=== PATIENT | male | born 1970 ===

== ENCOUNTER 2024-11-11 02:29 | Emergency (ER) | payer SELFPAY ==
[2024-11-11] VITALS (10 sets, daily range): BP systolic 130–160; BP diastolic 79–121; PULSE 79–101; RESP 14–22; TEMP 36.4–37.3; O2SAT 88–100
--- NOTE | 2024-11-11 02:30 | RT.EKG_ITS ---
APPROVED REPORT Exam: Resting ECG Reason for Exam: medical clearance Patient Location: E HR:83 bpm ECG Measurements Heart Rate 83 AXIS AK 155 P 76 QRSd 96 QRS 55 QT 401 T 55 QTc 470 Conclusion Sinus rhythm...normal P axis, V-rate 60- [address] segment or T wave abnormalities to suggest occlusive OH
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
[2024-11-11] MEDS: LORazepam 1 MG TAB PO ×3 (03:20→20:21)
[2024-11-11 03:28] LABS: Abs Immature Grans 0.02 10^3/uL (0.0-0.06); HCT 45.4 % (40.0-50.0); HGB 15.4 g/dL (13.5-17.5); Immature Grans % 0.2 %; MCH 29.8 pg (27.0-33.0); MCHC 33.9 % (32.0-36.0); MCV 88 fL (80-95); MPV 9.7 fL (8.0-11.0); Platelet Count 240 10^3/uL (130-400); RBC 5.16 10^6/uL (4.36-5.78); RDW 13.5 % (11.8-14.1); RDW-SD 43.8 fL; WBC 8.12 10^3/uL (4.4-10.8)
[2024-11-11 03:41] LABS: ALT 35 U/L (16-63); AST 32 U/L (15-37); Albumin 4.7 g/dL (3.4-5.0); Alkaline Phosphatase 43 U/L (46-116); Anion Gap 11.0 mmol/L (3-11); BUN 7 mg/dL (7-18); Bilirubin, Total 1.8 mg/dL (0.2-1.0); CO2 28.0 mmol/L (21.0-32.0); Calcium 9.8 mg/dL (8.5-10.1); Chloride 94 mmol/L (98-107); Estimated GFR 105.17 (mL/min/1.73m2); Glucose 96 mg/dL (74-106); Potassium 3.6 mmol/L (3.5-5.1); Sodium 133 mmol/L (136-145); Total Protein 9.7 g/dL (6.4-8.2)
[2024-11-11] MEDS: Midazolam 10 MG/2 ML VIAL NS (04:35)
[2024-11-11] MEDS: OLANZapine 10 MG VIAL (04:35)
--- NOTE | 2024-11-11 05:01 | NUR.NOTE ---
Patient moved to area for firther observation at which time he begain to display HYPER-SEXUAL and unwanted behavior Pt was shown to his room at which time he became mor aggressive pounding om the Glass in he Nursing station shouting profanity and refusing to follow instruction provider informed for further orders and to Re-evaluate patient, addional orders recieved Medication route changed to IM from PO, Safety of staff maintained and pt was medicated With IM versed and Zyprexa per Orders see Mar for admin times
--- NOTE | 2024-11-11 05:07 | NUR.NOTE ---
Pt transported to [facility] in the ED and arrangements made for 1:1 observation due to patients Behavior, V/S stable w B/P of 139/49 HR 76 Resp 16 Sao2 of 96% on R/APt placed on Heart monitor which shows NSR on the monitor w no ectopy, Pt hypersomulent at this time patient placed on Hospital strecher and transported to [facility] siderails up X 2 bed locked in lowest position and sitter at bedside for 1:1 observation
--- NOTE | 2024-11-11 09:01 | CMSP_ITS ---
Date of service: 11/11/24 Time of Service: 09:02 Care Management Safety Plan Status Status: Involuntary Reason for Wait Reason for Wait: Inpatient Admission Safety Plan Safety Plan: INVOLUNTARY FOR INPATIENT PSYCHIATRIC STABILIZATION.? Patient is appropriate in all interactions since arriving at [facility]; Pt has demonstrated appropriate coping and communication skills, has articulated his or her needs and concerns and is fully engaged during staff interactions. Safety plan has been established with patient, and care team, to adhere to patient goals, identify restrictions based on behavioral status, address nutrition, and determine allowed personal belongings, tools for hygiene and personal care. Determine level of activity including ambulation, level of supervision, visitors, and determine privileges based on behaviors and level of engagement by pt. SAFETY PLAN: 1. Will remain on suicide precautions, in paper clothes 2. Will remain in Zone B under direct supervision of one-on-one staff at all times provided by [employer]; MADY, THERAPIST transportation services representative. 3. May have paper cups, plates, finger foods as well as a cardboard spoon with which to eat meals. 4. Follow [facility] Management of the Admitted Behavioral Health Patient policy. 5. Shower available in Zone B without restriction. 6. Personal belongings-soft items permitted at RN discretion. 7. Visitors-none at this time. 8. Activities: soft cart items approved per RN discretion. 9.? Bathroom available in Zone B without restriction. 10. Phone: limited to legal administrative assistant on [facility] cordless phone at RN discretion. Due to INVOLUNTARY status, patient is being held at [facility] by the Department of Mental Health ([facility]) until 2nd certification by [facility] Psychiatrist can be performed (within 24 hours). Staff will provide de-escalation support (CPI) as needed. If patient wishes to leave [facility], staff will contact [facility] Crisis Screener ([phone]) and Telephone Coin Box Collector ([phone]) as soon as possible. In the event of elopement, notify [place] [employer] Police ([phone]). Patient is currently involuntarily at [facility]. [facility] Frontline Harbor Department Manager will continue seeking placement. Please contact the Telephone Coin Box Collector for any needed changes to Safety Plan. Safety plan has been provided to interdepartmental care team. Patient will be transported by [employer] at time of discharge.
--- NOTE | 2024-11-11 09:01 | PDOC.CMSAFE ---
Date of service: 11/11/24 Time of Service: 09:02 Care Management Safety Plan Status Status: Involuntary Reason for Wait Reason for Wait: Inpatient Admission Safety Plan Safety Plan: INVOLUNTARY FOR INPATIENT PSYCHIATRIC STABILIZATION.? Patient is appropriate in all interactions since arriving at [facility]; Pt has demonstrated appropriate coping and communication skills, has articulated his or her needs and concerns and is fully engaged during staff interactions. Safety plan has been established with patient, and care team, to adhere to patient goals, identify restrictions based on behavioral status, address nutrition, and determine allowed personal belongings, tools for hygiene and personal care. Determine level of activity including ambulation, level of supervision, visitors, and determine privileges based on behaviors and level of engagement by pt. SAFETY PLAN: 1. Will remain on suicide precautions, in paper clothes 2. Will remain in Zone B under direct supervision of one-on-one staff at all times provided by [employer]; MADY, GREASE PACKER metal bonding press operator. 3. May have paper cups, plates, finger foods as well as a cardboard spoon with which to eat meals. 4. Follow [facility] Management of the Admitted Behavioral Health Patient policy. 5. Shower available in Zone B without restriction. 6. Personal belongings-soft items permitted at RN discretion. 7. Visitors-none at this time. 8. Activities: soft cart items approved per RN discretion. 9.? Bathroom available in Zone B without restriction. 10. Phone: limited to workers compensation paralegal on [facility] cordless phone at RN discretion. Due to INVOLUNTARY status, patient is being held at [facility] by the Department of Mental Health ([facility]) until 2nd certification by [facility] Psychiatrist can be performed (within 24 hours). Staff will provide de-escalation support (CPI) as needed. If patient wishes to leave [facility], staff will contact [facility] Crisis Screener ([phone]) and Business Loan Processor ([phone]) as soon as possible. In the event of elopement, notify [place] [employer] Police ([phone]). Patient is currently involuntarily at [facility]. [facility] Frontline Senior Mobile Solutions Architect will continue seeking placement. Please contact the Business Loan Processor for any needed changes to Safety Plan. Safety plan has been provided to interdepartmental care team. Patient will be transported by [employer] at time of discharge.
--- NOTE | 2024-11-11 09:01 | PDOC.CMPRO ---
Date of service: 11/11/24 Time of Service: 16:09 Care Management Progress Note Progress Note Text Progress Note Text: CM huddled with Zone B RN, and [facility] surrounding Giorgio's plan of care. He is currently being held involuntary and was brought in by [facility]. 1st certification complete, awaiting second certification. Giorgio's ex-girlfriend has continuously contacted CM requesting to be added to HIPAA; referred to risk management. Per RN, he had been flexing in front female staff members. Per [facility], Giorgio is showing poor insight and judgement. CM will continue to follow. Social Determinants of Health Screening Will the Patient Participate in the Screening?: Declined to provide
[2024-11-11] MEDS: OLANZapine 10 MG TAB (10:25)
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
[2024-11-11 19:19] LABS: Cannabinoids THC Negative (Negative); METHADONE URINE SCREEN Negative (Negative)
--- NOTE | 2024-11-11 23:38 | MHPN_ITS ---
Date of service: 11/11/24 Time of Service: 17:30 Mental Health Emergency Note Release [facility] release signed:: No Reason for Visit The client is currently at the [facility] Zone [facility] on a MH warrant. The client is knew to [facility] and is known to this clinician in a limited capacity. This clinician meets with the client for the second daily assessment face to face. It is unknown to this clinician if the client has ever been hospitalized in the past for their mental health. In the last 2 weeks has the pt presented for ES prior to today?: Yes, presented at [facility] Client Information Client is: New Well Housed: No,status: Homeless Unstable housing Non Suicidal Self Injury Current: No History: No Safety Risk/Harm to Self or Others Current Ideation to Harm Self or Others: No Risk: Does risk to harm exist?: yes. Access to means: No. Risk: High Risk Duty to warn indicated: No Asssessment/Mental Status Appearance: Disheveled Attitude: Demanding and Other (uncooperative ) Behavior: Agitated Speech: Normal and Pressured Affect: Cogruent with mood Mood: Elevated, Anxious and Irritable Thought process: Racing and Poverty of content Hallucinations: No Delusions: yes, Grandiose and Bizarre Attention: Wandering and Poor concentration Perception: Not impaired Orientation: Fully orientated Memory: Intact Insight: Poor Judgement: Poor Neurovegetative Symptoms Sleep: No change Appetitie: No change Interests: No change Energy: No change Libido: Not applicable Additional Issues: Assaultive/Threatening Behavior: No Medical Concerns: No Client engaged in active self harm w/weapon: No Threatening to run away: No Child reported abuse/neglect: No Voluntarily presenting for services: No Domestic violence is a concern: No Extreme Psychosis or extreme behavior is present: Yes Impression The client is a 54-year-old biological male who is transient in [place], [place]. The client presents in a disheveled appearance and is seen in blue paper scrubs in the Zone B of [facility]. Affect appears to be congruent with mood. Speech is pressure, but in normal range. Client is elevated, anxious and irritable with this clinician. Thought process appears to be racing and a poverty of content. The client denied visual and auditory hallucinations. The client presents with grandiose and bizarre delusions observed by this clinician. Cognitive assessment reveals orientation to person, place and time. The client reports having a peaceful day where he took a nap and did push ups earlier. The client spoke of going to his daughters soccer game earlier and asked when he could leave. This clinician explained to the client that he was not allowed to leave the [facility] at this moment in time. The client denied SI, HI and NSSI with no intent or plan. The client had difficulties maintaining focus on the reassessment and engaged minimally. Plan/Disposition Recommended Disposition: Hospitalization facilities contacted. Plan: Per report of [facility] the 2nd cert passed for the client. The client will remain at the [facility] until placement is secured. The client will receive twice a day daily assessments by emergency services until placement is found. Reports/communication Outcome discussed with: ED/Personnel
--- NOTE | 2024-11-12 07:08 | ED.PSYCHBOAR ---
Date of service: 11/12/24 Time of Service: 07:08 Psychiatric Border Handoff Update Brief Story: 54-year-old male who is new to the area with reported history of bipolar disorder, presents for evaluation of manic behavior including hypersexuality and agitation. Patient medically cleared, evaluated by psychiatry and EE upheld. Patient currently voluntarily taking Zyprexa and Ativan in the manage behavior. No acute events overnight Behavioral Concerns: Agitation, hypersexuality Potential Disposition: Inpatient involuntary admission Barriers to Disposition: Bed search Medical Concerns: None Mediation Reconciliation performed: Yes Code Status ordered: Yes Diet ordered: Yes Future to do Items: Follow-up on bed search Discharge Plan Discharge Details Chief Complaint: PsychEval Clinical Impression: Marge Primary Care Provider: Unknown,Unknown ED Provider: Matthew Roca Home Meds and New Rx's Prescriptions: No Action sildenafil [Viagra] 25 mg tablet 25 mg PO ONCE PRN Rx Instructions: administer 30 minutes to 4 hours before activity
[2024-11-12 08:06] VITALS: BP 123/86; PULSE 85; RESP 18; TEMP 35.9; O2SAT 99
--- NOTE | 2024-11-12 08:52 | CMSP_ITS ---
Date of service: 11/12/24 Time of Service: 08:53 Care Management Safety Plan Status Status: Involuntary Reason for Wait Reason for Wait: Inpatient Admission Safety Plan Safety Plan: INVOLUNTARY FOR INPATIENT PSYCHIATRIC STABILIZATION.? Patient is appropriate in all interactions since arriving at [facility]; Pt has demonstrated appropriate coping and communication skills, has articulated his or her needs and concerns and is fully engaged during staff interactions. Safety plan has been established with patient, and care team, to adhere to patient goals, identify restrictions based on behavioral status, address nutrition, and determine allowed personal belongings, tools for hygiene and personal care. Determine level of activity including ambulation, level of supervision, visitors, and determine privileges based on behaviors and level of engagement by pt. SAFETY PLAN: 1. Will remain on suicide precautions, in paper clothes 2. Will remain in Zone B under direct supervision of one-on-one staff at all times provided by [employer]; MADY, LIME KILN AND RECAUSTICIZING OPERATOR culinary instructor. 3. May have paper cups, plates, finger foods as well as a cardboard spoon with which to eat meals. 4. Follow [facility] Management of the Admitted Behavioral Health Patient policy. 5. Shower available in Zone B without restriction. 6. Personal belongings-soft items permitted at RN discretion. 7. Visitors-none at this time. 8. Activities: soft cart items approved per RN discretion. 9.? Bathroom available in Zone B without restriction. 10. Phone: limited to legal associate on [facility] cordless phone at RN discretion. Due to INVOLUNTARY status, patient is being held at [facility] by the Department of Mental Health ([facility]) until 2nd certification by [facility] Psychiatrist can be performed (within 24 hours). Staff will provide de-escalation support (CPI) as needed. If patient wishes to leave [facility], staff will contact [facility] Crisis Screener ([phone]) and Competitive Athlete ([phone]) as soon as possible. In the event of elopement, notify [employer] Police ([phone]). Patient is currently involuntarily at [facility]. [facility] Frontline [employer] Control Worker will continue seeking placement. Please contact the Competitive Athlete for any needed changes to Safety Plan. Safety plan has been provided to interdepartmental care team. Patient will be transported by [employer] at time of discharge.
--- NOTE | 2024-11-12 08:52 | PDOC.CMSAFE ---
Date of service: 11/12/24 Time of Service: 08:53 Care Management Safety Plan Status Status: Involuntary Reason for Wait Reason for Wait: Inpatient Admission Safety Plan Safety Plan: INVOLUNTARY FOR INPATIENT PSYCHIATRIC STABILIZATION.? Patient is appropriate in all interactions since arriving at [facility]; Pt has demonstrated appropriate coping and communication skills, has articulated his or her needs and concerns and is fully engaged during staff interactions. Safety plan has been established with patient, and care team, to adhere to patient goals, identify restrictions based on behavioral status, address nutrition, and determine allowed personal belongings, tools for hygiene and personal care. Determine level of activity including ambulation, level of supervision, visitors, and determine privileges based on behaviors and level of engagement by pt. SAFETY PLAN: 1. Will remain on suicide precautions, in paper clothes 2. Will remain in Zone B under direct supervision of one-on-one staff at all times provided by [employer]; MADY, GUSSET FOLDER settlement worker. 3. May have paper cups, plates, finger foods as well as a cardboard spoon with which to eat meals. 4. Follow [facility] Management of the Admitted Behavioral Health Patient policy. 5. Shower available in Zone B without restriction. 6. Personal belongings-soft items permitted at RN discretion. 7. Visitors-none at this time. 8. Activities: soft cart items approved per RN discretion. 9.? Bathroom available in Zone B without restriction. 10. Phone: limited to banking paralegal on [facility] cordless phone at RN discretion. Due to INVOLUNTARY status, patient is being held at [facility] by the Department of Mental Health ([facility]) until 2nd certification by [facility] Psychiatrist can be performed (within 24 hours). Staff will provide de-escalation support (CPI) as needed. If patient wishes to leave [facility], staff will contact [facility] Crisis Screener ([phone]) and Pre K Teacher ([phone]) as soon as possible. In the event of elopement, notify [place] [employer] Police ([phone]). Patient is currently involuntarily at [facility]. [facility] [employer] will continue seeking placement. Please contact the Pre K Teacher for any needed changes to Safety Plan. Safety plan has been provided to interdepartmental care team. Patient will be transported by [employer] at time of discharge.
[2024-11-12] MEDS: OLANZapine 10 MG TAB PO (09:00)
--- NOTE | 2024-11-12 17:47 | CMDISCH_ITS ---
Date of service: 11/12/24 Time of Service: 14:00 Care Management Discharge Plan Reason for Hospitalization: jacques/psych eval and inpatient placement Disposition Disposition: [place] Transport via of: Other ([facility])
--- NOTE | 2024-11-12 21:54 | PDOC.MHPN2 ---
Date of service: 11/12/24 Time of Service: 11:10 Mental Health Emergency Note Release [facility] release signed:: Yes Reason for Visit In the last 2 weeks has the pt presented for ES prior to today?: No Asssessment/Mental Status Appearance: Unremarkable and Disheveled Attitude: Cooperative and Friendly Behavior: Hyperactivity Speech: Normal and Pressured Affect: Expansive Mood: Euphoric, Elevated, Happy and Anxious Thought process: Racing, Flight of ideas and Poverty of content Hallucinations: No evidence Delusions: No evidence Attention: Unremarkable and Wandering Perception: Not impaired Orientation: Fully orientated Memory: Intact Insight: Fair Judgement: Fair Neurovegetative Symptoms Sleep: No change Appetitie: No change Interests: No change Energy: No change Impression Giorgio reported no SI, HI, or NSSI. Giorgio was friendly with the procedure writer and engaged in the conversation. Giorgio reported that he had a good night sleep and has been eating. Giorgio asked questions to this procedure writer about her tattoos and complemented this procedure writer. Giorgio was wearing a pair of blue scrubs, but the shoulders were torn off. Giorgio was expansive and hyperactive. Giorgio was observed to touch his shirt, stretch, and reposition himself on the bed. Giorgio's thought process appeared to be racing and to be experiencing flight of ideas. Plan/Disposition Recommended Disposition: Hospitalization facilities contacted. Plan: Giorgio was accepted to [facility] and the transportation team with be picking him up at 2pm. Facilities contacted if Applicable [facility] Accepted, Accepted/transfer pending. Information Sent to [place]: Referral Reports/communication Outcome discussed with: ED/Personnel
== END 2024-11-12 13:54 ==
PROVIDERS: Emergency Medicine; Student in an Organized Health Care Education/Training Program; Emergency Provider General Practice
DX: F30.10 Manic episode without psychotic symptoms, unspecified (principal)
CPT/HCPCS: 00123; 80053; 80307; 93005; 99285; G0378; 85025; 93010; J2250; J2359